=== PATIENT | male | born 1960 | race Caucasian/White ===

== ENCOUNTER → 2016-12-18 | Outpatient (CLI) | payer OTHER ==
--- NOTE | 2016-12-18 17:12 | DX ---
Knee 1 or 2 Views Left, Knee 1 or 2 Views Right History: RIGHT AND LEFT KNEE PAIN Comparison exam: None available. Findings: Right knee: Moderate degenerative changes are present in the lateral compartment. Advanced patellofem oral degenerative changes are noted. No fracture or joint effusion. Left knee: Medial and lateral compartment joint space narrowing is again noted. 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 No fracture or joint effusion. Impression: Bilateral knee osteoarthritis, most severe within the patellofemoral compartments bilate rally. Suspect intra-articular or periarticular loose bodies on the left.
--- NOTE | 2016-12-18 17:12 | DX ---
Knee 1 or 2 Views Left, Knee 1 or 2 Views Right History: RIGHT AND LEFT KNEE PAIN Comparison exam: None available. Findings: Right knee: Moderate degenerative changes are present in the lateral compartment. Advanced patellofem oral degenerative changes are noted. No fracture or joint effusion. Left knee: Medial and lateral compartment joint space narrowing is again noted. 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 No fracture or joint effusion. Impression: Bilateral knee osteoarthritis, most severe within the patellofemoral compartments bilate rally. Suspect intra-articular or periarticular loose bodies on the left.
== END ==
LOC: BRMIMAGING 15:12
PROVIDERS: ATTEND Physician Assistant
DX: M17.0 Bilateral primary osteoarthritis of knee (principal)
CPT/HCPCS: 73560-PO